=== PATIENT | male | born 1995 | race Caucasian/White ===

== ENCOUNTER 2023-04-10 08:48 | Day surgery (SDC) | payer OTHER ==
[~2023-04-10 08:48] MED LIST: Acetaminophen 1,000 MG in Premix Bag 1 BAG IV SCH; Lactated Ringers 1,000 ML IV SCH; Pregabalin 75 MG Cap PO SCH; ceFAZolin 2 GM in Sodium Chloride 0.9% 50 ML IV ONE
[2023-04-10] MEDS ORDERED: Albuterol 0.083% 2.5 MG/3 ML Neb Soln NEB PRN (09:39)
[2023-04-10] MEDS ORDERED: Metoclopramide 10 MG/2 ML SDV IVPUSH PRN (09:39)
[2023-04-10] MEDS ORDERED: fentaNYL 50 MCG/ML SDV IVPUSH PRN (09:39)
[2023-04-10] MEDS ORDERED: HYDROmorphone 1 MG/ML Syringe IVPUSH PRN (09:39)
[2023-04-10] MEDS ORDERED: Morphine 2 MG/ML SYRINGE IVPUSH PRN (09:39)
[2023-04-10] MEDS ORDERED: droPERidol 5 MG/2 ML SDV IVPUSH PRN (09:39)
[2023-04-10] MEDS ORDERED: Ondansetron 4 MG/2 ML SDV IVPUSH PRN (09:39)
[2023-04-10] MEDS ORDERED: Naloxone 0.4 MG/ML SDV IVPUSH PRN (09:39)
[2023-04-10] MEDS ORDERED: Bupivacaine 0.5% 30 ML SDV ONE (10:48)
[2023-04-10] MEDS ORDERED: fentaNYL 250 MCG/5 ML SDV ONE (10:51)
[2023-04-10] MEDS ORDERED: Morphine 10 MG/ML SDV ONE (10:51)
[2023-04-10] MEDS ORDERED: Propofol 200 MG/20 ML SDV ONE ×2 (10:51→11:12)
[2023-04-10] MEDS ORDERED: Ropivacaine 0.5% 5 MG/ML 30 ML SDV ONE (10:52)
[2023-04-10] MEDS ORDERED: Ondansetron 4 MG/2 ML SDV ONE (12:48)
[2023-04-10] MEDS ORDERED: ceFAZolin 2 GM Vial ONE (12:48)
[2023-04-10] MEDS ORDERED: Dexamethasone 4 MG/ML 5 ML MDV ONE (12:48)
[2023-04-10] MEDS ORDERED: Sugammadex Sodium 200 MG/2 ML VIAL ONE (12:48)
[2023-04-10] MEDS ORDERED: Ketorolac 30 MG/ML SDV ONE (12:48)
== END 2023-04-10 15:00 | disposition home or self-care (01) ==
LOC: MW.SDS 08:48
PROVIDERS: ATTEND Surgery
DX: K40.30 Unilateral inguinal hernia, with obstruction, without gangrene, not specified as recurrent (principal)
CPT/HCPCS: 49507; 64486; A9270; C1781; J0690; J1100; J1885; J2270; J2405; J2704; J2795; J3010; J3490; J7120; 00830